=== PATIENT | female | born 1985 | race Caucasian/White ===

== ENCOUNTER 2019-03-27 21:35 | Emergency (ER) | payer MEDICAID ==
[~2019-03-27] VITALS: Ht 175.3 cm; Wt 81.0 kg
[2019-03-27 22:08] VITALS: BP 113/64
== END 2019-03-27 23:31 | disposition home or self-care (01) ==
LOC: ER 21:35
DX: O99.512 Diseases of the respiratory system complicating pregnancy, second trimester (principal); R06.02 Shortness of breath; Z3A.27 27 weeks gestation of pregnancy
CPT/HCPCS: 99281; Z7610

== ENCOUNTER 2019-06-17 16:28 | Observation (INO) | payer MEDICAID, OTHER ==
[~2019-06-17] VITALS: Ht 175.3 cm; Wt 84.4 kg
[2019-06-17] MEDS ORDERED: PNV1TABL76 PO (17:06)
== END 2019-06-17 19:00 | disposition home or self-care (01) ==
LOC: 8 EST LDRP 16:28
PROVIDERS: ADMIT Specialist; ATTEND Specialist
DX: O26.893 Other specified pregnancy related conditions, third trimester (principal); R10.2 Pelvic and perineal pain; R10.30 Lower abdominal pain, unspecified; Z3A.39 39 weeks gestation of pregnancy
CPT/HCPCS: 99281; G0378

== ENCOUNTER 2019-06-23 08:59 | Inpatient (IN) | payer OTHER ==
[~2019-06-23] VITALS: Ht 175.3 cm; Wt 86.2 kg
[~2019-06-23 08:59] MED LIST: PNV1TABL76 PO
[2019-06-23] MEDS ORDERED: DEXT 5%/LR + PITOCIN 20UNITS/L 1,000 ML IV SCH (09:48)
[2019-06-23] MEDS ORDERED: BUTORPHANOL TARTRATE 2 MG/ML VIAL IV PRN (10:00)
[2019-06-23] MEDS ORDERED: LIDOCAINE HCL 1% 20ML VIAL (Pyxis) INJ INFIL SCH (10:00)
[2019-06-23] MEDS ORDERED: NALOXONE HCL 0.4 MG/ML 1ML VIAL IM PRN (10:00)
[2019-06-23] MEDS ORDERED: CARBOPROST TROMETHAMINE 250 MCG/ML AMPUL IM PRN (10:00)
[2019-06-23] MEDS ORDERED: METHYLERGONOVINE MALEATE 0.2 MG/ML IM PRN ×2 (10:00→13:45)
[2019-06-23] MEDS: LACTATED RINGERS 500ML 500 ML IV SCH ×2 (10:44→12:37)
[2019-06-23 10:50] LABS: CLARITY URINE CLOUDY (CLEAR); COLOR URINE YELLOW (YELLOW); KETONES URINE NEGATIVE (NEGATIVE); LEUKOCYTE ESTERASE URINE NEGATIVE (NEGATIVE); NITRITE URINE NEGATIVE (NEGATIVE); OCCULT BLOOD URINE NEGATIVE (NEGATIVE); PROTEIN URINE TRACE (NEGATIVE); UROBILINOGEN URINE 0.2 E.U./dL (0.2-1.0)
[2019-06-23 11:02] LABS: BASOPHILS % 0.3 % (0.0-2.0); EOSINOPHILS % 0.5 % (0.0-5.0); HEMATOCRIT. 34.2 % (36.0-48.0); HEMOGLOBIN. 11.7 g/dL (12.0-16.0); LYMPHOCYTES % 23.8 % (20.0-50.0); MEAN CORPUSCULAR HEMOGLOBIN 27.2 pg (28.0-32.0); MEAN CORPUSCULAR VOLUME 79.7 fL (81.0-99.0); MEAN PLATELET VOLUME 8.2 fl (7.4-10.4); NEUTROPHILS % 67.4 % (40.0-76.0); PLATELET 250 x1000/uL (130-400); RED BLOOD CELL COUNT 4.29 mill/uL (4.2-5.4); RED CELL DISTRIBUTION WIDTH 13.7 % (11.6-14.6)
[2019-06-23 11:10] LABS: INR 0.9; PARTIAL THROMBOPLASTIN TIME 22.8 sec (23.4-31.0); PROTHROMBIN TIME 9.6 sec (9.6-11.0)
[2019-06-23] MEDS ORDERED: MINERAL OIL 30ML BOTTLE PO NR (11:30)
[2019-06-23 11:38] LABS: *AMPHETAMINES SCREEN URINE NEGATIVE (NEGATIVE); *BARBITURATES SCREEN URINE NEGATIVE (NEGATIVE); *COCAINE SCREEN URINE NEGATIVE (NEGATIVE); METHADONE URINE SCREEN NEGATIVE (NEGATIVE); OPIATES URINE SCREEN NEGATIVE (NEGATIVE)
[2019-06-23 11:40] LABS: CANNABINOID URINE SCREEN NEGATIVE (NEGATIVE); PHENCYCLIDINE URINE SCREEN NEGATIVE (NEGATIVE)
[2019-06-23 11:48] LABS: *BENZODIAZEPINES SCREEN URINE NEGATIVE (NEGATIVE)
[2019-06-23 12:11] LABS: HEPATITIS B SURFACE ANTIGEN NEGATIVE
[2019-06-23] MEDS ORDERED: RHO(D) IMMUNE GLOBULIN 300 MCG/SYR IM PRN (13:45)
[2019-06-23] MEDS ORDERED: LANOLIN OINT 7GM TUBE TOP PRN (13:45)
[2019-06-23] MEDS ORDERED: DIPHENHYDRAMINE 25MG CAPSULE PO PRN (13:45)
[2019-06-23] MEDS ORDERED: IBUPROFEN 800MG TABLET PO PRN (13:45)
[2019-06-23] MEDS ORDERED: IBUPROFEN 400MG TABLET PO PRN (13:45)
[2019-06-23] MEDS ORDERED: LACTATED RINGERS 500ML 500 ML IV SCH (15:00)
[2019-06-23 15:10] VITALS: BP 100/56
[2019-06-23 20:00] VITALS: BP 105/59
[2019-06-24 04:00] VITALS: BP 113/77
[2019-06-24 07:27] LABS: BASOPHILS % 0.3 % (0.0-2.0); EOSINOPHILS % 0.8 % (0.0-5.0); HEMATOCRIT. 32.4 % (36.0-48.0); LYMPHOCYTES % 25.5 % (20.0-50.0); MEAN CORPUSCULAR HEMOGLOBIN 27.4 pg (28.0-32.0); MEAN CORPUSCULAR VOLUME 80.5 fL (81.0-99.0); MEAN PLATELET VOLUME 7.6 fl (7.4-10.4); MONOCYTES % 10.2 % (2.0-8.0); NEUTROPHILS % 63.2 % (40.0-76.0); PLATELET 223 x1000/uL (130-400); RED BLOOD CELL COUNT 4.03 mill/uL (4.2-5.4); RED CELL DISTRIBUTION WIDTH 13.4 % (11.6-14.6)
[2019-06-24 07:30] VITALS: BP 104/67
[2019-06-24] MEDS ORDERED: PRENATAL VIT/FE FUMARATE/FA TABLET PO SCH (09:00)
[2019-06-24 15:30] VITALS: BP 110/68
[2019-06-24 19:30] VITALS: BP 103/62
[2019-06-25 04:00] VITALS: BP 102/60
[2019-06-25] MEDS ORDERED: FERR325T6 MT (07:29)
[2019-06-25] MEDS ORDERED: IBUP-2030 PO (07:29)
[2019-06-25 08:58] VITALS: BP 105/58
== END 2019-06-25 11:25 | disposition home or self-care (01) | DRG 560 ==
LOC: OBSVTOIN 08:59 → 8 EST LDRP 08:59 → 8EST 15:10
PROVIDERS: ADMIT Obstetrics & Gynecology; ATTEND Obstetrics & Gynecology
PROC: 10E0XZZ Delivery of Products of Conception, External Approach (ICD-10-PCS; principal; 2019-06-24)
DX: O69.81X0 Labor and delivery complicated by cord around neck, without compression, not applicable or unspecified (principal); Z37.0 Single live birth; Z3A.39 39 weeks gestation of pregnancy
CPT/HCPCS: 36415; 80305; 81003; 85025; 86592; 86703; 86762; 86850; 86900; 87340; J0595; J2310; J2590; J3490; J7120